=== PATIENT | female | born 1980 | race Caucasian/White ===

== ENCOUNTER 2022-09-03 05:56 | Outpatient (CLI) | payer BC ==
[~2022-09-03] VITALS: Ht 165.1 cm; Wt 63.0 kg
[2022-09-08] MEDS ORDERED: ESCI-2 PO (10:47)
[2022-09-08] MEDS ORDERED: TRAZ-227 PO (10:47)
[2022-09-08] MEDS ORDERED: LACTATED RINGERS 1,000 ML IV STA (10:55)
[2022-09-08] MEDS ORDERED: HURRICAINE EXT TUBE (BENZOCAINE) XX PRN (11:00)
[2022-09-08] MEDS ORDERED: LIDOCAINE JELLY 2% 6 ML SYRINGE MM PRN (11:00)
== END 2022-09-08 10:58 | disposition home or self-care (01) ==
LOC: PREOP 05:56
PROVIDERS: ATTEND Surgery
DX: Z01.818 Encounter for other preprocedural examination (principal)

== ENCOUNTER 2022-09-10 11:12 | Day surgery (SDC) | payer BC ==
[~2022-09-10] VITALS: Ht 165 cm; Wt 63.0 kg
[~2022-09-10 11:12] MED LIST: ESCI-2 PO; TRAZ-227 PO
[2022-09-10] MEDS ORDERED: LACTATED RINGERS 1,000 ML IV STA (11:16)
[2022-09-10] MEDS ORDERED: HURRICAINE EXT TUBE (BENZOCAINE) XX PRN (11:30)
[2022-09-10] MEDS ORDERED: LIDOCAINE JELLY 2% 6 ML SYRINGE MM PRN (11:30)
[2022-09-10 11:35] VITALS: BP 112/83
--- NOTE | 2022-09-10 11:44 | Progress Note-Pre Operative ---
Pre-Operative Progress Note Date of Available H&P: Sep 10, 2022 Date H&P Reviewed: Sep 10, 2022 Time H&P Reviewed: 11:30 History & Physical: No changes noted Pre-Operative Diagnosis: MICKEY DOBSON MD Sep 10, 2022 11:44
[2022-09-10] MEDS ORDERED: ONDANSETRON 4 MG/2 ML (SDV) Z0FRAN IVP PRN ×2 (11:45→13:45)
[2022-09-10] MEDS ORDERED: ONDANSETRON 4 MG (ZOFRAN) ORAL DISSOLVE TAB PO PRN ×2 (11:45→13:45)
[2022-09-10] MEDS ORDERED: PANT40TA2 PO (11:46)
--- NOTE | 2022-09-10 11:46 | Discharge Inst-Surgical ---
D/C Lap Instructions-KIDO New, Converted, or Re-Newed RX: RX on Chart Follow Up Activity as tolerated High Fiber Diet 25g or more per day Avoid Alcohol, Caffeine, Spicy Lantana and Acid foods. Drink 64 fluid oz or more of fluids per day. Symptoms to Report: Fever over 101 degree F, Nausea/Vomiting If any problems/questions: Contact your physician or go to Emergency Room MICKEY SUERO MD Sep 10, 2022 11:46
[2022-09-10] MEDS ORDERED: LIDOCAINE JELLY 2% 6 ML SYRINGE ONE (11:56)
[2022-09-10] MEDS ORDERED: MIDAZOLAM 2 MG/2 ML (VERSED) VIAL ONE (12:13)
[2022-09-10] MEDS ORDERED: PROPOFOL INJECTION 50 ML IV ONE (12:13)
[2022-09-10 13:10] VITALS: BP 96/55
[2022-09-10 13:15] VITALS: BP 101/67
[2022-09-10 13:20] VITALS: BP_SYST 112; BP_SYST 92; BP_DIAS 61; BP_DIAS 75
--- NOTE | 2022-09-10 13:33 | Progress Note-Post Operative ---
Post-Operative Progess Note Surgeon (s)/Graphic Design Specialist (s) Surgeon MICKEY SUERO MD Graphic Design Specialist: none Pre-Operative Diagnosis GERD Post-Operative Diagnosis reflux esophagitis(grade B), small-mod HH(2.5cm), moderate gastritis. Procedure & Operative Findings Date of Procedure 09/10/22 Procedure Performed/Findings EGD with bx. Anesthesia Type mac Estimated Blood Loss Estimated blood loss (mL): minimal Specimens/Packing Specimens Removed ge jxn, antrum MICKEY SUERO MD Sep 10, 2022 13:32
--- NOTE | 2022-09-10 14:07 | Anesthesia-General Post-Op ---
MAC Patient Condition Mental Status/LOC: Same as Preop Cardiovascular: Satisfactory Nausea/Vomiting: Absent Respiratory: Satisfactory Pain: Controlled Complications: Absent Post Op Complications Complications None Follow Up Care/Instructions Patient Instructions None needed. Anesthesiology Discharge Order Discharge Order Patient is doing well, no complaints, stable vital signs, no apparent adverse anesthesia problems. No complications reported per nursing. ERASMO CRAWFORD CRNA Sep 10, 2022 14:07
--- NOTE | 2022-09-10 20:28 | OPERATIVE REPORT ---
DATE OF SERVICE: 09/10/2022 ATTENDING JUKE BOX SERVICER: Dr. Angelica Howard. PREOPERATIVE DIAGNOSIS: Gastroesophageal reflux disease. POSTOPERATIVE DIAGNOSES: Reflux esophagitis [place] grade B, small to moderate size hiatal hernia approximately 2.5 cm in size. Moderate gastritis. No distal obstructions. PROCEDURE: EGD with biopsy. SURGEON: Mickey Suero MD ANESTHESIA: Monitored anesthesia care. ESTIMATED BLOOD LOSS: Minimal. FINDINGS: Reflux esophagitis [place] grade B, small to moderate size hiatal hernia approximately 2.5 cm in size. Moderate gastritis. No distal obstructions. DISPOSITION: The patient tolerated the procedure well. INDICATIONS: The patient is a 42-year-old female who has had issues with reflux, early satiety, abdominal bloating as well as epigastric burning sensation as well as nausea and vomiting now for some time; however, this has worsened in the past few weeks. She feels that food in general; however, spicy foods make this significantly worse. During the episodes of vomiting, she does not report any hematemesis, no coffee-ground emesis. DESCRIPTION OF PROCEDURE: The patient was brought to the endoscopy suite and laid in the left lateral decubitus position. After adequate IV pain and sedative medications and monitored anesthesia care, the mouthpiece was applied. The endoscope was then placed in the mouth, visualizing the pharynx and hypopharyngeal region. Vocal cords, epiglottis and vallecula identified and appeared to be normal. The endoscope was then gently intubated into the esophageal opening and esophagus insufflated. The endoscope was then advanced into the first, second and third portion of the esophagus at the level of the GE junction, a reflux esophagitis [place] grade B identified. No ulcers or strictures identified in this region. A biopsy was taken with forceps with visualization of good hemostasis. The endoscope was then advanced into the stomach. The endoscope retroflexed, visualizing a small to moderate size hiatal hernia, approximately 2.5 cm in size. There was also moderate severity gastritis. No formal ulcerations, polyps or any neoplasms. A biopsy was taken of the antrum to rule out H. pylori with visualization of good hemostasis. The endoscope was then advanced through the pylorus and the first and second portion of the duodenum, which appeared normal. No distal obstructions. The endoscope was then slowly withdrawn while taking a second look and suctioning of residual air with no additional findings. The patient tolerated the procedure well. We will recommend the necessary lifestyle and dietary accommodation including small and more frequent meals, avoidance of eating at night as well as head elevation while lying supine. She also needs to take in small and more frequent meals and avoid eating at night. Smoking cessation as well as avoidance of caffeinated beverages, spicy, greasy acidic foods would also be severely beneficial. We will also start her on omeprazole 40 mg daily. We also have a feeling that her symptoms of abdominal bloating and early satiety may be related to gallbladder etiology, so we will have her follow up in the office in 2 weeks to schedule noninvasive studies including the gallbladder ultrasound as well as a possible HIDA scan. Job ID: [id number] DocumentID: [id number] Dictated Date: 09/10/2022 13:14:05 Employee Communications Specialist Date: 09/10/2022 20:26:00 Dictated By: MICKEY SUERO MD
== END 2022-09-10 13:45 | disposition home or self-care (01) ==
LOC: ENDO 11:12
PROVIDERS: ATTEND Surgery
DX: K21.00 Gastro-esophageal reflux disease with esophagitis, without bleeding (principal); K44.9 Diaphragmatic hernia without obstruction or gangrene; K29.50 Unspecified chronic gastritis without bleeding; B96.81 Helicobacter pylori [H. pylori] as the cause of diseases classified elsewhere; F17.210 Nicotine dependence, cigarettes, uncomplicated; Z28.310 Unvaccinated for COVID-19
CPT/HCPCS: 84703

== ENCOUNTER → 2022-10-20 | Outpatient (CLI) | payer BC ==
[~2022-10-20] MED LIST changes: +OMEP20TA33 PO; +PANT40TA2 PO
--- NOTE | 2022-10-20 09:07 | Diagnostic Imaging Report ---
PROCEDURE: US Gallbladder. TECHNIQUE: Multiple real-time grayscale images were obtained over the right upper quadrant in various projections. INDICATION: Right upper quadrant pain with nausea and vomiting. Liver is normal in size at 15 cm. Portal vein is patent and shows normal direction of flow. No discrete liver mass is identified. Gallbladder contains mobile stones. No significant wall thickening or biliary duct dilatation is identified. Pancreas is unremarkable. Aorta is nonaneurysmal. IVC is patent. Right kidney is without calculi or hydronephrosis. There is no ascites. IMPRESSION: Cholelithiasis without evidence of acute cholecystitis. Dictated by: Dictated on workstation # [id number]
== END ==
LOC: RAD 07:07
PROVIDERS: ATTEND Surgery
DX: K80.20 Calculus of gallbladder without cholecystitis without obstruction (principal)
CPT/HCPCS: 76705

== ENCOUNTER 2022-10-21 05:34 | Outpatient (CLI) | payer BC ==
[~2022-10-21] VITALS: Ht 165.1 cm; Wt 63.3 kg
[~2022-10-21 05:34] MED LIST changes: -OMEP20TA33 PO
[2022-10-21] MEDS ORDERED: OMEP20TA33 PO (11:56)
== END 2022-10-21 12:14 | disposition home or self-care (01) ==
LOC: PREOP 05:34
PROVIDERS: ATTEND Surgery
DX: Z01.818 Encounter for other preprocedural examination (principal)

== ENCOUNTER 2022-10-23 11:02 | Day surgery (SDC) | payer BC ==
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
[~2022-10-23] VITALS: Ht 165.1 cm; Wt 63.6 kg
[2022-10-23] VITALS (12 sets, daily range): BP systolic 100–120; BP diastolic 63–81
[~2022-10-23 11:02] MED LIST changes: +OMEP20TA33 PO
--- NOTE | 2022-10-23 11:03 | Progress Note-Pre Operative ---
Pre-Operative Progress Note Date H&P Reviewed: Oct 23, 2022 Time H&P Reviewed: 11:03 History & Physical: H&P Reviewed, Patient Examed, No changes noted Pre-Operative Diagnosis: Chronic calculous cholecystitis ELAINE OLIVEIRA APRN Oct 23, 2022 11:03
[2022-10-23] MEDS ORDERED: HYDR-3817 PO (11:05)
--- NOTE | 2022-10-23 11:05 | Discharge Inst-Surgical ---
D/C Lap Instructions-KIDO Reconcile Patient Problems Problems Reviewed?: Yes New, Converted, or Re-Newed RX: RX on Chart Follow Up Appt in 2 weeks Activity as tolerated No driving for 24 hours No driving while on pain medications Incentive Spirometry use every 2 hours while awake Regular Diet Symptoms to Report: Fever over 101 degree F, Nausea/Vomiting Infection Signs and Symptoms to report: Increased redness, Foul odor of wound, Increased drainage Bathing instructions: May shower Operative Area Clean/Dry; Keep incision clean/dry If any problems/questions: Contact your physician or go to Emergency Room ELAINE OLIVEIRA APRN Oct 23, 2022 11:05
[2022-10-23] MEDS ORDERED: ACETAMINOPHEN 325 MG TABLET PO PRN (11:15)
[2022-10-23] MEDS ORDERED: ONDANSETRON 4 MG/2 ML (SDV) Z0FRAN IVP PRN ×2 (11:15→14:00)
[2022-10-23] MEDS ORDERED: HYDROcodone/APAP 5 MG/325 MG (LORTAB) TAB PO ONE (11:15)
[2022-10-23] MEDS ORDERED: morphine INJ 10 MG/ML 1ML (SYR OR VIAL) IVP PRN (11:15)
[2022-10-23] MEDS ORDERED: ceFAZolin INJECTION 1,000 MG in NS (IVPB) 50 ML IV ONE (11:30)
[2022-10-23] MEDS: LACTATED RINGERS 1,000 ML IV PRN ×2 (11:34→13:18)
[2022-10-23] MEDS ORDERED: BUP/EPI 0.5% 1:200,000 (SENSORCAINE) 30 ML VIAL ONE (11:53)
[2022-10-23] MEDS ORDERED: GLYCOPYRROLATE 0.2 MG/ML (ROBINUL) 2 ML VIAL ONE (12:22)
[2022-10-23] MEDS ORDERED: MIDAZOLAM 2 MG/2 ML (VERSED) VIAL ONE (12:22)
[2022-10-23] MEDS ORDERED: fentaNYL INJ 100 MCG/2 ML AMP ONE (12:22)
[2022-10-23] MEDS ORDERED: proPOfol 200 MG/20 ML (DIPRIVAN) VIAL IV ONE (12:22)
[2022-10-23] MEDS ORDERED: ONDANSETRON 4 MG/2 ML (SDV) Z0FRAN ONE (12:22)
[2022-10-23] MEDS ORDERED: LIDOCAINE PF 2% 5 ML (XYLOCAINE) VIAL ONE (12:22)
[2022-10-23] MEDS ORDERED: NEOSTIGMINE (BLOXIVERZ ) 1 MG/1ML 10 ML VIAL ONE (12:23)
[2022-10-23] MEDS ORDERED: ROCURONIUM 50 MG/5 ML (ZEMURON) VIAL IV ONE (12:23)
[2022-10-23] MEDS ORDERED: BUP/EPI 0.5% 1:200,000 (SENSORCAINE) 30 ML VIAL INJ ONE (13:04)
--- NOTE | 2022-10-23 13:25 | Progress Note-Post Operative ---
Post-Operative Progess Note Surgeon (s)/Bleach Maker (s) Surgeon MICKEY SUERO MD Bleach Maker: russel campoverde DESIGN ENG Pre-Operative Diagnosis GALLSTONES Post-Operative Diagnosis chronic calculous cholecystitis. Procedure & Operative Findings Date of Procedure 10/23/22 Procedure Performed/Findings laparoscopic cholecystectomy Anesthesia Type get Estimated Blood Loss Estimated blood loss (mL): minimal Specimens/Packing Specimens Removed gallbladder MICKEY SUERO MD Oct 23, 2022 13:25
[2022-10-23] MEDS ORDERED: morphine INJ 10 MG/ML 1ML (SYR OR VIAL) ONE (13:41)
[2022-10-23] MEDS ORDERED: HYDROmorphone 2 MG/ML VIAL (DILAUDID) ONE (13:51)
[2022-10-23] MEDS ORDERED: morphine INJ 10 MG/ML 1ML (SYR OR VIAL) IVP ONE (14:00)
[2022-10-23] MEDS ORDERED: HYDROmorphone 2 MG/ML VIAL (DILAUDID) IV ONE (14:00)
--- NOTE | 2022-10-23 14:17 | Anesthesia-General Post-Op ---
General Patient Condition Mental Status/LOC: Same as Preop Cardiovascular: Satisfactory Nausea/Vomiting: Absent Respiratory: Satisfactory Pain: Controlled Complications: Absent Post Op Complications Complications None Follow Up Care/Instructions Patient Instructions None needed. Anesthesia/Patient Condition Patient Condition Patient is doing well in PACU. She does complain of pain, which is unfortunately expected but has stable vital signs, no apparent adverse anesthesia problems. No complications reported per nursing. CARLY PAUL DO Oct 23, 2022 14:17
[2022-10-23] MEDS ORDERED: HYDROcodone/APAP 5 MG/325 MG (LORTAB) TAB ONE (14:50)
--- NOTE | 2022-10-23 15:07 | OPERATIVE REPORT ---
DATE OF SERVICE: 10/23/2022 ATTENDING PRIMARY CARE PHYSICIAN: Angelica Howard DO. PREOPERATIVE DIAGNOSIS: Symptomatic chronic calculous cholecystitis. POSTOPERATIVE DIAGNOSIS: Symptomatic chronic calculous cholecystitis. PROCEDURE: Laparoscopic cholecystectomy. SURGEON: Mickey Suero MD. LOSS PREVENTION OPERATIONS MANAGER: Apollo Garnica APRN ANESTHESIA: General endotracheal. ESTIMATED BLOOD LOSS: Minimal. FINDINGS: Gallstones. DISPOSITION: The patient tolerated the procedure well. INDICATIONS: The patient is a 42-year-old female who we had initially seen in the past for what she thought was more reflux symptoms and abdominal bloating that was worse with spicy foods as well as caffeinated beverages. On 09/10/2022, she underwent an EGD with biopsies and found to have reflux esophagitis, [place] grade B, small to moderate size hiatal hernia 2-2.5 cm in size as well as moderate gastritis. She was found to be H. pylori positive and was treated with appropriate antibiotic regimen for 2 weeks. She stated that she continued to have these symptoms with abdominal bloating usually after eating meals and underwent an ultrasound, which did show gallstones. DESCRIPTION OF PROCEDURE: The patient was brought to the operating room, laid supine on the table. After adequate IV pain and sedative medications and general endotracheal intubation, the abdomen was prepped and draped in standard surgical fashion. 0.5% Marcaine with epinephrine was then used to anesthetize the overlying skin in the left upper abdominal quadrant and a transverse skin incision made using a #15 blade. An 0 silk suture was applied to the medial aspect of the incision for retraction and the Veress needle inserted with a low opening pressure of 0 mmHg. The abdomen was then insufflated to 15 mmHg pressure. The Veress needle removed and a 5 mm XL trocar placed followed by a 5 mm 45-degree angle laparoscope visualizing the peritoneal cavity. A 4-quadrant abdominal exploration was performed. The liver, small bowel, omentum and gallbladder appeared normal. Under direct visualization, we then proceeded to place a supraumbilical 10 mm port after the skin and peritoneal lining were anesthetized using 0.5% Marcaine with epinephrine and a transverse skin incision made using a #15 blade. In a similar manner, a right upper abdominal quadrant 5 mm port was placed. The patient was then placed in reverse Trendelenburg position as well as planed right side up, left side down. The fundus of the gallbladder was then retracted anteriorly and superiorly. The hepatoduodenal ligament was then dissected with blunt dissection as well as electrocautery on the hook instrument as well as the [place] dissector. The entire critical view of safety was identified including the triangle of Calot as well as the cystic duct and artery as the only 2 structures going into the gallbladder as well as the cystic plate behind the proximal gallbladder. A timeout was then taken and the cystic duct and artery were then clipped proximally and distally and cut with EndoShears. The gallbladder was then dissected off of the liver bed using cautery and hook instrument with visualization of good hemostasis as well as no leaking ducts of Luschka. The gallbladder was removed through the 10 port site using an EndoCatch bag. The 10 mm port site fascia and peritoneum were then closed under direct visualization using a Talha-Avani device and 0 Vicryl suture. The abdomen was then desufflated and the remaining ports were removed. All skin incisions were closed using 4-0 Monocryl running subcuticular sutures. Wounds were then cleaned and covered with Dermabond. The patient tolerated the procedure well. We will start IV and oral pain medications as well as a clear liquid diet. Once tolerating clears with good pain control with oral pain medications, ambulating well, we will discharge her home where she will be instructed to do no heavy lifting or exertion for the next 2 weeks. Job ID: [id number] DocumentID: [id number] Dictated Date: 10/23/2022 13:32:20 Pressure Testing Technician Date: 10/23/2022 15:05:00 Dictated By: MICKEY SUERO MD MTDD
== END 2022-10-23 15:40 | disposition home or self-care (01) ==
LOC: SDC 11:02
PROVIDERS: ATTEND Surgery
DX: K80.10 Calculus of gallbladder with chronic cholecystitis without obstruction (principal); F17.210 Nicotine dependence, cigarettes, uncomplicated; Z28.310 Unvaccinated for COVID-19
CPT/HCPCS: 84703; 87081

== ENCOUNTER 2023-04-02 05:31 | Outpatient (CLI) | payer BC ==
[~2023-04-02] VITALS: Ht 165.1 cm; Wt 63.2 kg
[~2023-04-02 05:31] MED LIST changes: +HYDR-3817 PO
[2023-04-02] MEDS ORDERED: FAMO40TA72 PO (08:54)
[2023-04-02] MEDS ORDERED: MELA5TAB50 PO (08:54)
[2023-04-02] MEDS ORDERED: OMEP-440 PO (08:54)
[2023-04-02] MEDS ORDERED: PROP10TA8 PO (08:54)
== END 2023-04-02 09:40 | disposition home or self-care (01) ==
LOC: PREOP 05:31
PROVIDERS: ATTEND Obstetrics & Gynecology
DX: Z01.818 Encounter for other preprocedural examination (principal)

== ENCOUNTER 2023-04-06 07:39 | Day surgery (SDC) | payer BC ==
[2023-04-06] VITALS (9 sets, daily range): BP systolic 86–136; BP diastolic 50–91
[~2023-04-06] VITALS: Ht 165 cm; Wt 63.2 kg
[~2023-04-06 07:39] MED LIST changes: +FAMO40TA72 PO; +MELA5TAB50 PO; +OMEP-440 PO; +PROP10TA8 PO
[2023-04-06] MEDS ORDERED: LACTATED RINGERS 1,000 ML 1,000 ML IV PRN (08:15)
[2023-04-06] MEDS ORDERED: LIDOCAINE 1% INJ 20 ML VIAL ONE (08:31)
[2023-04-06] MEDS ORDERED: proPOfol INJECTION 200 MG/20 ML VIAL IV ONE (09:11)
[2023-04-06] MEDS ORDERED: LIDOCAINE PF 2% 5 ML VIAL ONE (09:11)
[2023-04-06] MEDS ORDERED: ONDANSETRON INJECTION 4 MG/2 ML (SDV) ONE (09:11)
[2023-04-06] MEDS ORDERED: dexAMETHasone INJ 10 MG/ML 1 ML VIAL ONE (09:11)
[2023-04-06] MEDS ORDERED: MIDAZOLAM INJ 2 MG/2 ML VIAL ONE (09:12)
[2023-04-06] MEDS ORDERED: fentaNYL INJECTION 100 MCG/2 ML VIAL ONE (09:12)
[2023-04-06] MEDS ORDERED: SEVOFLURANE (ULTANE) 15 ML INHAL SOLN ONE (09:52)
[2023-04-06] MEDS ORDERED: ONDANSETRON INJECTION 4 MG/2 ML (SDV) IVP PRN (10:00)
[2023-04-06] MEDS ORDERED: morphine INJ 10 MG/ML 1ML (SYR OR VIAL) IVP ONE (10:00)
[2023-04-06] MEDS ORDERED: HYDROmorphone INJECTION 2 MG/ML VIAL IV ONE (10:00)
--- NOTE | 2023-04-06 10:00 | Progress Note-Pre Operative ---
Pre-Operative Progress Note Date H&P Reviewed: Apr 06, 2023 Time H&P Reviewed: 09:30 History & Physical: H&P Reviewed, No changes noted Pre-Operative Diagnosis: CORRY-3 plan for LEEP with ECC KOFFI CLIFFORD DO Apr 06, 2023 10:00
--- NOTE | 2023-04-06 10:00 | Anesthesia-General Post-Op ---
General Patient Condition Mental Status/LOC: Same as Preop Cardiovascular: Satisfactory Nausea/Vomiting: Absent Respiratory: Satisfactory Pain: Controlled Complications: Absent Post Op Complications Complications None Follow Up Care/Instructions Patient Instructions None needed. Anesthesia/Patient Condition Patient Condition Patient was doing well after the procedure with no complaints, stable vital signs, no apparent adverse anesthesia problems. No complications reported per nursing. CARLY PAUL 11, 2023 10:00
--- NOTE | 2023-04-06 10:05 | OB/GYN Operative Report ---
Operative Report Date of Procedure:Apr 06, 2023 Preoperative Diagnosis:Abnormal Pap smear HSIL with colposcopy showing CORRY-3 Postoperative Diagnosis: Same Name of the Procedure: LEEP with ECC Surgeon: Koffi Clifford Director Product(s): [none] Anesthesia: General LMA Indications for Procedure: CORRY-3 Findings of the Procedure: Same Complications: None Disposition: [] Counts correct x2 patient taken to recovery room in stable condition. Description of procedure: Informed consent was obtained and signed and patient was taken to the OR Chi. 6 placed under general LMA anesthesia placed in the dorsolithotomy position prepped and draped usual sterile fashion. A timeout was performed. A pelvic exam under anesthesia revealed a normal-sized uterus and no adnexal masses. A coated bivalve speculum was placed into the vagina and using a smoke evacuator the cervix was identified. The cervix was cleansed with 3% acetic acid solution. The cervical vaginal mucosa was injected using 1% lidocaine with epi for a total of 10 cc. Using a loop electrical excisional device the biopsy was obtained. Because the lesion was large the biopsy was taken in 3 pieces. An endocervical curetting was obtained. These pieces were sent to pathology for further analysis. The biopsy site was then cauterized using ball cautery for hemostasis. Monsel's paste was placed over the cervix for excellent hemostasis. The bivalve speculum was removed and the patient was taken to recovery room in stable condition. All my counts were correct x2. KOFFI CLIFFORD DO Apr 06, 2023 10:05
[2023-04-06] MEDS ORDERED: IBUP-1780 PO (10:06)
--- NOTE | 2023-04-06 10:06 | Discharge Inst-Simple/Standard ---
Discharge Inst-Standard Reconcile Patient Problems Problems Reviewed?: Yes Discharge Medications New, Converted or Re-Newed RX: Transmitted to Pharmacy Patient Instructions/Follow Up Plan of Care/Instructions/FU: Pelvic rest for 2 weeks. Follow-up 1 week Activity as Tolerated: Yes Discharge Diet: Regular Diet Return to The Hospital For: Increased pain and increased bleeding KOFFI CLIFFORD DO Apr 06, 2023 10:06
== END 2023-04-06 11:25 | disposition home or self-care (01) ==
LOC: SDC 07:39
PROVIDERS: ATTEND Obstetrics & Gynecology
DX: D06.0 Carcinoma in situ of endocervix (principal); F17.210 Nicotine dependence, cigarettes, uncomplicated; Z28.310 Unvaccinated for COVID-19
CPT/HCPCS: 84703; 87081

== ENCOUNTER → 2023-05-25 | Outpatient (CLI) | payer BC ==
[~2023-05-25] VITALS: Ht 165.1 cm; Wt 65.4 kg
[~2023-05-25] MED LIST changes: +IBUP-1780 PO
== END | disposition home or self-care (01) ==
LOC: PREOP 05:30
PROVIDERS: ATTEND Obstetrics & Gynecology
DX: Z01.818 Encounter for other preprocedural examination (principal)

== ENCOUNTER 2023-06-01 06:00 | Day surgery (SDC) | payer BC ==
[2023-06-01] VITALS (13 sets, daily range): BP systolic 100–138; BP diastolic 52–94
[~2023-06-01] VITALS: Ht 165.1 cm; Wt 65.4 kg
[2023-06-01] MEDS ORDERED: metroNIDAZOLE 500MG/100ML IVPB 100 ML IV ONE (06:15)
[2023-06-01] MEDS ORDERED: ceFAZolin INJECTION 2,000 MG in NS (IVPB) 50 ML 50 ML IV ONE (06:15)
[2023-06-01] MEDS: LACTATED RINGERS 1,000 ML 1,000 ML IV PRN ×2 (06:42→09:00)
[2023-06-01] MEDS ORDERED: BUPIVACAINE 0.25% 30 ML VIAL ONE (06:51)
[2023-06-01] MEDS ORDERED: proPOfol INJECTION 200 MG/20 ML VIAL IV ONE (06:52)
[2023-06-01] MEDS ORDERED: fentaNYL INJECTION 100 MCG/2 ML VIAL ONE ×2 (06:52→08:28)
[2023-06-01] MEDS ORDERED: MIDAZOLAM INJ 2 MG/2 ML VIAL ONE (06:52)
[2023-06-01] MEDS ORDERED: ONDANSETRON INJECTION 4 MG/2 ML (SDV) ONE (06:52)
[2023-06-01] MEDS ORDERED: ROCURONIUM 50 MG/5 ML VIAL IV ONE (06:52)
[2023-06-01] MEDS ORDERED: SEVOFLURANE (ULTANE) 15 ML INHAL SOLN ONE ×3 (06:52→09:08)
[2023-06-01] MEDS ORDERED: LIDOCAINE PF 2% 5 ML VIAL ONE (06:52)
[2023-06-01 06:55] LABS: BASOPHILS % (AUTO) 0 % (0-10); EOSINOPHILS % (AUTO) 1 % (0-10); HEMATOCRIT 44 % (35-52); HEMOGLOBIN 14.3 g/dL (11.5-16.0); LYMPHOCYTES # (AUTO) 1.6 10^3/uL (1.0-4.0); LYMPHOCYTES % (AUTO) 31 % (12-44); MEAN CORPUSCULAR HEMOGLOBIN 30 pg (25-34); MEAN CORPUSCULAR HGB CONC 33 g/dL (32-36); MEAN CORPUSCULAR VOLUME 93 fL (80-99); MEAN PLATELET VOLUME 10.8 fL (9.0-12.2); MONOCYTES # (AUTO) 0.4 10^3/uL (0.0-1.0); MONOCYTES % (AUTO) 7 % (0-12); NEUTROPHILS # (AUTO) 3.2 10^3/uL (1.8-7.8); NEUTROPHILS % (AUTO) 61 % (42-75); PLATELET COUNT 331 10^3/uL (130-400); WHITE BLOOD COUNT 5.3 10^3/uL (4.3-11.0)
--- NOTE | 2023-06-01 07:05 | Progress Note-Pre Operative ---
Pre-Operative Progress Note Date H&P Reviewed: Jun 01, 2023 Time H&P Reviewed: 07:00 History & Physical: H&P Reviewed, No changes noted Pre-Operative Diagnosis: CORRY 3 Plan for RATLH possible BSO KOFFI CLIFFORD DO Jun 01, 2023 07:05
[2023-06-01] MEDS ORDERED: ATROPINE INJECTION 0.4 MG/ML SDV ONE (08:28)
[2023-06-01] MEDS ORDERED: BUPIVACAINE 0.25% 30 ML VIAL INJ ONE (09:05)
--- NOTE | 2023-06-01 09:38 | OB/GYN Operative Report ---
Operative Report Date of Procedure:Jun 01, 2023 Preoperative Diagnosis: CORRY-3 Postoperative Diagnosis: Same plus uterine fibroid Name of the Procedure: Robotic assisted total laparoscopic hysterectomy with b ilateral salpingectomy Cystoscopy Surgeon: Sherrie Archuleta Wholesale Representative(s): Portia Gurrola RN Anesthesia:General ETA Indications for Procedure: HSIL noted on Pap smear CORRY-3 noted on cold [place] P and cold knife cone biopsy. Patient did not desire future and elected to proceed to hysterectomy. The risks benefits and alternatives were discussed with the patient in great detail the patient verbalized understanding had all of her questions answered to her satisfaction, signed consents and is ready to proceed. Findings of the Procedure: Normal-sized uterus with a small fibroid on the anterior fundus. Normal ovaries normal fallopian tubes. Complications: None Disposition: Counts correct x2 patient was taken to recovery room in stable condition Description of the Procedure: Informed consent was obtained signed and patient was taken to OR Chi. 2 placed under general endotracheal anesthesia placed in the dorsolithotomy position prepped and draped in usual sterile fashion. A timeout was performed. A pelvic exam under anesthesia revealed a normal-sized uterus no adnexal masses. A Rangel catheter was placed into the urinary bladder. A weighted speculum was placed into the posterior vaginal vault and single-tooth tenaculum was used to grasp the end of the cervix. Uterus sounded to 8 cm. A 2-0 [address] was used to place a stitch at 3:00 on the cervix. A Tess uterine manipulator was then inserted into the uterine cavity. The 2-0 Vicryl was then weaved through the Tess manipulator to hold onto it. The weighted speculum and single-tooth were removed. The balloon was inflated inside the uterine cavity of the Tess manipulator. Attention was then paid to the abdomen where we marked about 3 cm above the umbilicus and then marked 8 cm from that to the right and to the left and the line. We then placed another logan inferior to the right lined logan. These areas were then injected with quarter percent plain Marcaine. A small incision was made in the supraumbilical area and using direct visualization with a da Nani trocar 8 mm and a 5 mm scope entered into the abdominal cavity without any difficulty. The abdomen was insufflated using carbon oxide gas. Once the abdomen was insufflated my lateral ports were then placed after placing incisions in those areas using the da Nani 8 mm trocars in the right and left horne. The accounts receivable assistant trocar was then placed in the inferior logan after placing an incision there. Once the trocars were placed the da Nani robot was then guided forward to the marking area. The da Nani endoscope was then placed into robot arm #3 and the uterus was marked as the targeted area. Once this was done the robotic arms were then attached to the da Nani trocars and the arms were placed to point towards the uterus. The da Nani vessel sealer was placed in the left arm (arm #2) and the da Nani scissors were placed into arm #4. Once these were placed and locked into their positions, I then disgowned and approached the da Nani console. I placed my hands into the da Nani instrument manipulator's and then placed my head into the visor. We then inspected the area and noted that both ovaries were normal fallopian tubes were identified and normal the uterus was normal size there was a small fibroid on the anterior side of the uterus that was small about 1 cm. Both ureters were seen peristalsing in the pelvic sidewall and were away from where we would be working. Using the vessel sealer and the da Nani scissors we started with the fallopian tube on the right side the mesosalpinx was cauterized and incised along to the proximal end and then it was incised off and removed from the abdominal cavity by my accounts receivable assistant. I then proceeded to the ovarian ligament which was then cauterized and incised using the vessel sealer the round ligament was cauterized and incised using the vessel sealer then the anterior posterior leaves of the broad ligament were the posterior leaf of the broad ligament was cauterized and incised using the da Nani scissors and then the anterior leaf of the broad ligament was cauterized and incised using the da Nani scissors across the vesicouterine fascia to help create the bladder flap. I then used the vessel sealer along the side of the uterus to cauterize and incise down to the uterine artery which was cauterized and incised. Once this was done I then proceeded to the patient's left side and in similar fashion cauterized and incised the mesosalpinx of the left fallopian tube down across the ovarian ligament and then across the round ligament the anterior posterior leaves of the broad ligament and using my da Nani scissors cauterized and incised the posterior and anterior leaves of the broad ligament continuing onward from the anterior leaf to connect from the right side to create the bladder flap the bladder flap was then reflected off. Then I went to the sidewall of the left side of the uterus cauterized and incised the vessel sealer down to the uterine artery cauterized and incised the uterine artery. Once this was done the vaginal occluder balloon was insufflated using normal saline. I then cauterized and made my incision into the vaginal cuff and created by vaginal cuff using my da Nani scissors. I used the vessel sealer to cauterize along the right and left sided delgado of the uterus to maintain excellent hemostasis. Once I was able to connect and completely incised my vaginal cuff uterus and cervix were removed from the pelvic cavity. The area was inspected there was noted to be a small bleeder along the vaginal cuff which was hemostatic using bipolar. The da Nani scissors and vessel sealer were then removed and bipolar was placed into my left arm (#2) and a fine needle seasonal driver was placed into my right arm (#4). Using a V locking suture I then reapproximated my vaginal cuff in a running fashion and imbricated using the V locking suture over the top of it. The suture was cut. The area was inspected and was noted to be hemostatic. The needle was then removed under direct visualization. The instruments were then removed under direct visualization. I then scrubbed back in the robotic arms were undocked and using the endoscope we visualized the cuff and placed Floseal over the cuff. We then visualized the removal of all of our trocars and noted that our incision sites were hemostatic. As much of the carbon oxide gas was allowed to escape as possible. The incisions were then reapproximated using 3-0 Monocryl and then sealed with Dermabond. Then attention was paid to the perineum where the Rangel catheter was removed and the cystoscope was introduced into the bladder the bladder was noted to be intact and both ureters were seen with urine egressing from them. The cystoscope was removed and the Rangel catheter was placed back inside the urinary bladder. The patient tolerated the procedure well was taken to recovery room in stable condition. All of my counts were correct x2 EBL was minimal fluid was 1000 cc and urine output was 400 cc. SHERRIE ARCHULETA DO Jun 01, 2023 09:38
--- NOTE | 2023-06-01 09:41 | Anesthesia-General Post-Op ---
General Patient Condition Mental Status/LOC: Same as Preop Cardiovascular: Satisfactory Nausea/Vomiting: Absent Respiratory: Satisfactory Pain: Controlled Complications: Absent Post Op Complications Complications None Follow Up Care/Instructions Patient Instructions None needed. Anesthesia/Patient Condition Patient Condition Patient is doing well, no complaints, stable vital signs, no apparent adverse anesthesia problems. No complications reported per nursing. ERASMO CRAWFORD CRNA Jun 01, 2023 09:41
[2023-06-01] MEDS ORDERED: D5 LR 1,000 ML IV SOLN 1,000 ML IV SCH (09:45)
[2023-06-01] MEDS ORDERED: morphine INJ 4 MG/ML 1 ML (VIAL/SYRINGE) IV PRN (09:45)
[2023-06-01] MEDS ORDERED: fentaNYL INJECTION 100 MCG/2 ML VIAL IVP ONE (09:45)
[2023-06-01] MEDS ORDERED: NALOXONE 0.4 MG/ML 1 ML VIAL IV PRN (09:45)
[2023-06-01] MEDS ORDERED: MEPERIDINE INJ 50 MG/ML VIAL IVP ONE (09:45)
[2023-06-01] MEDS ORDERED: METOCLOPRAMIDE INJ 10 MG/2 ML IV PRN (09:45)
[2023-06-01] MEDS ORDERED: morphine INJ 10 MG/ML 1ML (SYR OR VIAL) IVP ONE (09:45)
[2023-06-01] MEDS ORDERED: BENZOCAINE/MENTHOL (DERMOPLAST) 56 ML CAN TP PRN (09:45)
[2023-06-01] MEDS ORDERED: ONDANSETRON INJECTION 4 MG/2 ML (SDV) IVP PRN (09:45)
[2023-06-01] MEDS ORDERED: KETOROLAC INJ 30 MG/ML VIAL ONE (09:55)
[2023-06-01] MEDS: KETOROLAC INJ 30 MG/ML VIAL IV SCH ×3 (09:56→22:26)
[2023-06-01] MEDS: ACETAMINOPHEN 500 MG TABLET PO SCH ×2 (12:13→18:16)
[2023-06-01] MEDS: oxyCODONE IMMEDIATE RELEASE 5 MG TABLET PO PRN ×3 (12:13→20:44)
[2023-06-02] VITALS: BP 98/56
[2023-06-02] MEDS: ACETAMINOPHEN 500 MG TABLET PO SCH ×2 (00:18→06:21)
[2023-06-02 04:00] VITALS: BP 110/63
[2023-06-02] MEDS: KETOROLAC INJ 30 MG/ML VIAL IV SCH (04:43)
[2023-06-02 05:47] LABS: BASOPHILS % (AUTO) 0 % (0-10); EOSINOPHILS # (AUTO) 0.1 10^3/uL (0.0-0.3); EOSINOPHILS % (AUTO) 1 % (0-10); HEMATOCRIT 36 % (35-52); HEMOGLOBIN 11.9 g/dL (11.5-16.0); LYMPHOCYTES # (AUTO) 1.6 10^3/uL (1.0-4.0); LYMPHOCYTES % (AUTO) 25 % (12-44); MEAN CORPUSCULAR HEMOGLOBIN 31 pg (25-34); MEAN CORPUSCULAR HGB CONC 33 g/dL (32-36); MEAN CORPUSCULAR VOLUME 93 fL (80-99); MEAN PLATELET VOLUME 10.4 fL (9.0-12.2); MONOCYTES # (AUTO) 0.5 10^3/uL (0.0-1.0); MONOCYTES % (AUTO) 8 % (0-12); NEUTROPHILS # (AUTO) 4.2 10^3/uL (1.8-7.8); NEUTROPHILS % (AUTO) 65 % (42-75); PLATELET COUNT 251 10^3/uL (130-400); WHITE BLOOD COUNT 6.5 10^3/uL (4.3-11.0)
[2023-06-02] MEDS ORDERED: DOCU100C37 PO (07:01)
--- NOTE | 2023-06-02 07:02 | Discharge Summary ---
Discharge Summary Hospital Course Problems Reviewed?: Yes Hospital Course Date of Admission: Admission Diagnosis : Family Physician/Provider: Angelica Howadr DO Date of Discharge: 06/02/23 Discharge Diagnosis: Status post robotic assisted total laparoscopic hystere ctomy with bilateral salpingectomy and cystoscopy Hospital Course: Patient was admitted for robotic assisted total laparoscopic hysterectomy she did very well we also removed both fallopian tubes. Postoperatively she did very well her pain was well controlled she was discharged home on postop day #1 with pain medications and instructions Labs and Pending Lab Test: Laboratory Tests 06/02/23 05:13: White Blood Count 6.5, Red Blood Count 3.90, Hemoglobin 11.9, Hematocrit 36, Mean Corpuscular Volume 93, Mean Corpuscular Hemoglobin 31, Mean Corpuscular Hemoglobin Concent 33, Red Cell Distribution Width 12.4, Platelet Count 251, Mean Platelet Volume 10.4, Immature Granulocyte % (Auto) 0, Neutrophils (%) (Auto) 65, Lymphocytes (%) (Auto) 25, Monocytes (%) (Auto) 8, Eosinophils (%) (Auto) 1, Basophils (%) (Auto) 0, Neutrophils # (Auto) 4.2, Lymphocytes # (Auto) 1.6, Monocytes # (Auto) 0.5, Eosinophils # (Auto) 0.1, Basophils # (Auto) 0.0, Immature Granulocyte # (Auto) 0.0 Home Meds Active Ibuprofen 800 Mg Tablet 800 Mg PO Q8H PRN Reported Melatonin 5 Mg Tab.chew 5 Mg PO HS Propranolol HCl 10 Mg Tablet 10 Mg PO NEEDED Omeprazole Magnesium 20 Mg Tablet.dr 20 Mg PO DAILY Pepcid (Famotidine) 40 Mg Tablet 40 Mg PO DAILY Trazodone HCl 100 Mg Tablet 100 Mg PO DAILY Escitalopram Oxalate 10 Mg Tablet 10 Mg PO DAILY Activity: Activity as Tolerated Driving Instructions: No Driving for 1 Week NO SMOKING: NO SMOKING Nothing Inside Vagina: No Douching, No [place], No Tampons Discharge Diet: Regular Diet Symptoms to Report to : Pain Increased, Constipation(Persistant), Fever Over 101 Degrees F, Pain/Pressure in Chest, Vaginal Bleeding Increase, Vaginal Discharge Foul For Any Problems or Questions: Contact Your Physician Infection Signs and Symptoms: Increased Redness, Foul Odor of Wound, Increased Drainage, Skin Itchy or Has a Rash, Increased Swelling, Temperature Above 101 F Operative Area Clean and Dry: Keep Incision Clean/Dry Stitches/Cydney/Dermabond: Dermabond Discharge Physical Examination Allergies: Coded Allergies: No Known Drug Allergies (Unverified , 04/02/23) Vitals & I&Os Vital Signs Date Time Temp Pulse Resp B/P (MAP) Pulse Ox O2 Delivery O2 Flow Rate FiO2 06/02/23 04:00 36.1 58 18 110/63 (79) 97 Room Air 06/01/23 10:10 4.00 Discharge Summary Date of Admission Date of Discharge Supervisory-Addendum Brief Verification & Attestation Participated in pt care: history, MDM, physical Personally performed: exam, history, MDM, supervision of care Care discussed with: other Procedures: n/a Results interpretation: Verified all documentation I personally saw and examined this patient KOFFI CLIFFORD DO Jun 02, 2023 07:02
--- NOTE | 2023-06-02 07:03 | Progress Note ---
Standard Progress Note Progress Notes/Assess & Plan Date Seen by a Provider: Jun 02, 2023 Time Seen by a Provider: 07:00 Progress/Assessment & Plan Patient is postop day #1 status post with BS and cystoscopy. Her pain is well controlled she has been up and ambulating she tolerated her diet and she was able to urinate on her own. Vital signs stable afebrile Heartregular rate and rhythm Lungsclear to auscultation bilaterally Abdomensoft nontender nondistended incision sites clean dry intact no signs or symptoms of infection noted Minimal vaginal bleeding Extremitiesintact x4 no cyanosis clubbing erythema or edema A/P Status post RATLH BS DC to home DC instructions given KOFFI CLIFFORD DO Jun 02, 2023 07:03
[2023-06-02 08:00] VITALS: BP 122/81
[2023-06-02] MEDS ORDERED: DOCUSATE SODIUM 100 MG CAPSULE PO SCH (09:00)
[2023-06-02] MEDS ORDERED: ENOXAPARIN 40 MG/0.4 ML SYRINGE SC SCH (09:00)
[2023-06-02] MEDS ORDERED: IBUPROFEN 800 MG TABLET PO SCH (09:45)
[2023-06-03] MEDS ORDERED: ENOXAPARIN 40 MG/0.4 ML SYRINGE SC SCH (09:00)
== END 2023-06-02 10:50 | disposition home or self-care (01) ==
LOC: SDC 06:00 → WS 10:35 → SDC 06-02 10:50
PROVIDERS: ATTEND Obstetrics & Gynecology
DX: C53.9 Malignant neoplasm of cervix uteri, unspecified (principal); D25.2 Subserosal leiomyoma of uterus; N94.89 Other specified conditions associated with female genital organs and menstrual cycle; N83.8 Other noninflammatory disorders of ovary, fallopian tube and broad ligament; F17.210 Nicotine dependence, cigarettes, uncomplicated
CPT/HCPCS: 36415; 84703; 85025; 86850; 86900; 86901; 87081